=== PATIENT | male | born 1960 | race Caucasian/White ===

== ENCOUNTER 2022-06-02 19:11 | Emergency (ER) | payer MEDICARE, OTHER, MEDICAID ==
[~2022-06-02 19:11] MED LIST: BACTRIM 400 MG-1 TAB PO; HUMALOG100 U/ML SQ; LANTUS100 U/ML SQ; LEVOXYL0.088 MG PO; MAG-OX 400400 MG/TAB PO; MYFORTIC360 MG PO; NEURONTIN100 MG/CAP PO; NORCO 325 MG-51 TAB PO; NORVASC 10MG10 MG PO; PLAVIX 75MG TAB75 MG PO; PREDNISONE 5MG5 MG PO; PROGRAF 1MG1 MG PO; PROTONIX 40MG T40 MG PO; ROCEPHIN VIA1 G/VIAL IM; SENOKOT S 50 MG1 TAB PO; TENORMIN 5050 MG/TAB PO; ZOCOR 40MG40 MG PO
[2022-06-02 19:19] VITALS: TEMP 97.8
[2022-06-02 21:09] LABS: ALBUMIN 3.7 gm/dL (3.4-4.8); BILIRUBIN,TOTAL 0.3 mg/dL (0.2-1.2); C-REACTIVE PROTEIN 1.95 mg/dL (0.00-0.50); CALCIUM 10.4 mg/dL (8.4-10.2); CREATININE, serum 1.77 mg/dL (0.72-1.25); POTASSIUM 5.1 mmol/L (3.5-4.5); TOTAL PROTEIN 7.3 gm/dL (6.2-8.1)
[2022-06-02 21:54] LABS: BASO % 0.3 % (0.0-2.0); EOS # 0.1 K/mm3 (0.0-0.7); GRAN # 8.8 K/mm3 (1.4-6.5); GRAN % 79.5 % (42.2-75.2); HEMATOCRIT 33.8 % (42.0-52.0); HEMOGLOBIN 11.1 g/dl (13.5-18.0); LYMPH # 1.1 K/mm3 (1.2-3.4); LYMPH % 9.5 % (20.0-51.0); MEAN CELL VOLUME 77 fl (80.0-100.0); MEAN CORPUSCULAR HEMOGLOBIN 25 pg (27-31); MEAN CORPUSCULAR HGB CONC 33 g/dl (33.0-37.0); MEAN PLATELET VOLUME 9.4 fl (7.4-10.4); PLATELET COUNT 204 K/mm3 (130-400); RED BLOOD COUNT 4.41 M/mm3 (4.20-5.60)
--- NOTE | 2022-06-03 02:21 | NUR ---
Vancomycin Initial Dosing Pharmacy Note Ordering provider: Indication/duration: Cellulitis x 3 days Relevant comorbidities: Renal transplant, DM, HTN LABS: SCr = 1.77, WBC = 11.1 Recommendation: If continued, will draw troughs and follow levels. Loading dose: 1.75 grams Maintenance dose: 1 gram every 24 hours Trough goal: 10-15 ug/mL
[2022-06-03 07:07] LABS: MEAN CELL VOLUME 80 fl (80.0-100.0); MEAN CORPUSCULAR HGB CONC 31 g/dl (33.0-37.0); MEAN PLATELET VOLUME 9.9 fl (7.4-10.4); PLATELET COUNT 167 K/mm3 (130-400); RED BLOOD COUNT 3.86 M/mm3 (4.20-5.60); REDCELL DISTRIBUTION WIDTH-CV 15.1 % (11.5-14.5)
[2022-06-03 07:12] LABS: HEMATOCRIT 30.7 % (42.0-52.0); HEMOGLOBIN 9.6 g/dl (13.5-18.0); MEAN CORPUSCULAR HEMOGLOBIN 25 pg (27-31)
[2022-06-03 07:22] LABS: ALBUMIN 3.2 gm/dL (3.4-4.8); CALCIUM 9.1 mg/dL (8.4-10.2); CREATININE, serum 1.93 mg/dL (0.72-1.25); MAGNESIUM 1.1 mg/dL (1.6-2.6); POTASSIUM 5.4 mmol/L (3.5-4.5); TOTAL PROTEIN 6.3 gm/dL (6.2-8.1)
[2022-06-03 08:24] LABS: ANISOCYTOSIS 1+; BAND 6 % (0-10); HYPOCHROMIA 2+; LYMPHOCYTE 8 % (20.0-51.0); MICROCYTOSIS 1+; NEUTROPHILS 86 % (42.0-75.2); PLATELET ESTIMATE NORMAL (NORMAL)
[2022-06-03 17:42] VITALS: BP 104/62; PULSE 64
== END 2022-06-03 17:42 | disposition short-term general hospital (02) ==
LOC: COL.ER 19:11
PROVIDERS: Nurse Practitioner; Student in an Organized Health Care Education/Training Program
DX: L03.211 Cellulitis of face (principal); C44.321 Squamous cell carcinoma of skin of nose; C44.42 Squamous cell carcinoma of skin of scalp and neck
CPT/HCPCS: J1170; J2060; J2270; J2405; J2543; J2550; J2765; J3370; J7030; J7040; J7507; J7512